=== PATIENT | male | born 1970 | race African-American/Black ===

== ENCOUNTER 2021-08-12 12:03 | Emergency (ER) | payer OTHER ==
[2021-08-12 12:13] VITALS: BP 132/73
--- NOTE | 2021-08-12 12:55 | ED Physician Documentation ---
History of Present Illness - Stated complaint Stated Complaint: INSULIN ISSUES - Chief complaint Chief Complaint: General - History obtained from History obtained from: Patient - History of Present Illness Timing: Today Pain level max: 0 Pain level now: 0 - Additonal information Additional information: 50-year-old male visiting from [place]. Out of his Basaglar KwikPen. Requesting refill. He goes home next week. Asymptomatic Review of Systems Constitutional: denies: Fever PD PAST MEDICAL HISTORY - Present Medications Home Medications: Ambulatory Orders Medication Instructions Recorded Confirmed Insulin Glargine,Hum.rec.anlog 22 unit SUBQ DAILY #1 each 08/12/21 [Basaglar Kwikpen U-100] - Allergies Allergies/Adverse Reactions: Allergies Allergy/AdvReac Type Severity Reaction Status Date / Time No Known Drug Allergies Allergy Verified 08/12/21 12:13 PD ED PE NORMAL - Vitals Vital signs reviewed: Yes - General General: Alert and oriented X 3, No acute distress - HEENT HEENT: Moist mucous membranes - Respiratory Respiratory: No respiratory distress - Derm Derm: Warm and dry - Neuro Neuro: Alert and oriented X 3 Results - Vitals Vitals: Vital Signs - 24 hr 08/12/21 12:08 Temperature 36.7 C Heart Rate 75 Respiratory 16 Rate Blood Pressure 132/73 H O2 Saturation 97 Oxygen O2 Source Room air PD MEDICAL DECISION MAKING - ED course Complexity details: considered differential, d/w patient ED course: Insulin was refilled. No emergency medical condition at this time. This document was made in part using voice recognition software. While efforts are made to proofread this document, sound alike and grammatical errors may occur. Departure - Departure Disposition: 01 Home, Self Care Clinical Impression: Medication refill Condition: Good Follow-Up: your,doctor as needed [Other] Prescriptions: Insulin Glargine,Hum.rec.anlog [Basaglar Kwikpen U-100] 22 unit SUBQ DAILY #1 each Comments: Your prescription was sent to the [facility]. Follow-up with your doctor for further care.
== END 2021-08-12 12:59 | disposition home or self-care (01) ==
LOC: ED 12:03
DX: Z76.0 Encounter for issue of repeat prescription (principal)
CPT/HCPCS: 99281